=== PATIENT | female | born 1990 | race Caucasian/White ===

== ENCOUNTER 2017-01-20 22:39 | Emergency (ER) | payer OTHER | END 2017-01-21 00:15 | disposition home or self-care (01) | LOC: ER 22:39 | DX: S67.91XA Crushing injury of unspecified part(s) of right wrist, hand and fingers, initial encounter (principal); W23.0XXA Caught, crushed, jammed, or pinched between moving objects, initial encounter; Y92.019 Unspecified place in single-family (private) house as the place of occurrence of the external cause; F17.210 Nicotine dependence, cigarettes, uncomplicated; N80.9 Endometriosis, unspecified; Z90.49 Acquired absence of other specified parts of digestive tract; Z88.2 Allergy status to sulfonamides; Z88.1 Allergy status to other antibiotic agents; Z88.6 Allergy status to analgesic agent; Z79.3 Long term (current) use of hormonal contraceptives | CPT/HCPCS: 73130; 99070; 99283 ==